=== PATIENT | male | born 1955 | race Hispanic/Latino ===

== ENCOUNTER 2021-01-31 15:26 | Inpatient (IN) | payer MEDICARE ==
[~2021-01-31 15:26] MED LIST: Iopamidol-370 76% 500 ML 1 ML ONE
[2021-01-31] MEDS ORDERED: Aspirin 300 MG Suppository ONE (16:01)
[2021-01-31 16:23] LABS: #Lymphocytes 0.9 thou/uL (1.20-3.40); #Monocytes 0.4 thou/uL (0.11-0.59); #Neutrophils 5.5 thou/uL (1.40-6.50); %Basophils 0.7 % (0.0-1.0); %Eosinophils 0.5 % (0.0-10.0); %Lymphocytes 13.5 % (21.0-51.0); %Monocytes 5.9 % (0.0-10.0); %Neutrophils 79.4 % (42.0-75.0); Hemoglobin 12.5 g/dL (14.0-18.0); Mean Corpuscular HGB CONC 34.8 g/dL (32.0-36.0); Mean Corpuscular Hemoglobin 34.3 pg (27.0-31.0); Mean Corpuscular Volume 98.7 fL (78.0-98.0); Mean Platelet Volume 7.5 fL (7.4-10.4); Platelet Count 210 thou/uL (130-400); RBC Distribution Width 12.1 % (11.5-14.5); Red Blood Cell (RBC) Count 3.63 mill/uL (4.70-6.10); White Blood Cell (WBC) Count 6.9 thou/uL (4.8-10.8)
[2021-01-31 16:28] LABS: INR-International Normal Ratio 1.1; PTT 33.4 sec (22.9-36.1); Prothrombin Time 14.3 sec (12.0-14.7)
[2021-01-31 16:30] LABS: ALT (SGPT) 16 U/L (8-55); AST (SGOT) 20 U/L (5-34); Albumin 4.3 g/dL (3.4-4.8); Alkaline Phosphatase 67 U/L (40-110); Anion Gap 16 mmol/L (10-20); BUN (Urea Nitrogen) 16 mg/dL (8.4-25.7); Bilirubin, Total 0.8 mg/dL (0.2-1.2); Calc. Creatinine Clearance 0 mL/min (70-130); Calcium 9.5 mg/dL (7.8-10.44); Carbon Dioxide 23 mmol/L (23-31); Chloride 101 mmol/L (98-107); Globulin 3.1 g/dL (2.4-3.5); Glucose 199 mg/dL (80-115); Potassium 3.5 mmol/L (3.5-5.1); Protein, Total 7.4 g/dL (5.8-8.1); Sodium 136 mmol/L (136-145)
[2021-01-31] MEDS ORDERED: hydrALAZINE 20 MG/ML VIAL SLOW IVP PRN (18:24)
[2021-01-31] MEDS ORDERED: Labetalol HCl 100 MG/20 ML VIAL SLOW IVP PRN (18:24)
[2021-01-31] MEDS ORDERED: Acetaminophen 325 MG TAB PO PRN (18:27)
[2021-01-31] MEDS ORDERED: Ondansetron ODT 4 MG TAB PO PRN (18:27)
[2021-01-31] MEDS ORDERED: Calcium Carbonate 500 MG ChewTAB PO PRN (18:27)
[2021-01-31] MEDS ORDERED: Ondansetron PF 4 MG/2 ML Vial IVP PRN (18:27)
[2021-01-31] MEDS ORDERED: Acetaminophen 650 MG Suppository PR PRN (18:27)
[2021-01-31] MEDS ORDERED: Clopidogrel Bisulfate 75 MG TAB PO SCH (18:30)
[2021-01-31] MEDS ORDERED: Dextrose 50% Abboject 50 ML SYRINGE SLOW IVP PRN (18:32)
[2021-01-31] MEDS ORDERED: HumaLOG 300 UNITS/3 ML VIAL SC PRN ×2 (18:32)
[2021-01-31] MEDS ORDERED: Dextrose 5% in Water 1,000 ML IV PRN (18:32)
[2021-01-31] MEDS ORDERED: Famotidine 20 MG TAB PO SCH (21:00)
[2021-01-31] MEDS ORDERED: Famotidine/PF 20 mg/2ml Vial SLOW IVP SCH (21:00)
[2021-01-31] MEDS ORDERED: Atorvastatin Calcium 40 MG TAB PO SCH (21:00)
[2021-01-31 22:13] VITALS: BMI 30.6
[2021-02-01 00:32] LABS: SARS-CoV-2 NAA Rapid Test Not Detected (NotDetected)
[2021-02-01 05:29] LABS: #Eosinphils 0.2 thou/uL (0.0-0.7); #Lymphocytes 1.8 thou/uL (1.20-3.40); #Monocytes 0.7 thou/uL (0.11-0.59); #Neutrophils 3.8 thou/uL (1.40-6.50); %Basophils 0.5 % (0.0-1.0); %Eosinophils 2.3 % (0.0-10.0); %Lymphocytes 27.8 % (21.0-51.0); %Monocytes 10.8 % (0.0-10.0); %Neutrophils 58.7 % (42.0-75.0); Hemoglobin 12.6 g/dL (14.0-18.0); Mean Corpuscular Hemoglobin 34.8 pg (27.0-31.0); Mean Corpuscular Volume 99.3 fL (78.0-98.0); Mean Platelet Volume 7.6 fL (7.4-10.4); Platelet Count 207 thou/uL (130-400); RBC Distribution Width 12.3 % (11.5-14.5); Red Blood Cell (RBC) Count 3.63 mill/uL (4.70-6.10); White Blood Cell (WBC) Count 6.5 thou/uL (4.8-10.8)
[2021-02-01 05:50] LABS: Anion Gap 13 mmol/L (10-20); BUN (Urea Nitrogen) 15 mg/dL (8.4-25.7); Calc. Creatinine Clearance 73 mL/min (70-130); Calcium 9.6 mg/dL (7.8-10.44); Carbon Dioxide 24 mmol/L (23-31); Cardiac Risk 6.1 (Less than 4.5); Chloride 104 mmol/L (98-107); Cholesterol 220 mg/dl (< 200 Desired); Glucose 150 mg/dL (80-115); HDL Cholesterol 36 mg/dL (>60 Neg Risk); LDL Cholesterol, Calculated 159 mg/dL; Magnesium 2.2 mg/dL (1.6-2.6); Potassium 3.3 mmol/L (3.5-5.1); Sodium 138 mmol/L (136-145); Triglycerides 127 mg/dL (Less than 150)
[2021-02-01] MEDS ORDERED: Clopidogrel Bisulfate 75 MG TAB PO SCH ×2 (09:00)
[2021-02-01] MEDS ORDERED: Lisinopril/Hydrochlorothiazide 20 mg/12.5 mg Tablet PO SCH (09:00)
[2021-02-01] MEDS ORDERED: Aspirin 81 mg Enteric Coated Tablet PO SCH (09:00)
[2021-02-01] MEDS ORDERED: Metoprolol Tartrate 50 MG TAB PO SCH (09:00)
[2021-02-01 11:29] VITALS: TEMP 98.1
[2021-02-01] MEDS ORDERED: Potassium Chloride 20 MEQ TAB PO SCH (12:00)
[2021-02-01 14:00] VITALS: BP 152/77
[2021-02-01] MEDS ORDERED: Atorvastatin Calcium 40 MG TAB PO SCH (21:00)
== END 2021-02-01 14:37 | disposition home or self-care (01) | DRG 69 ==
LOC: ERS 15:26 → 2SE 17:28
PROVIDERS: ADMIT Internal Medicine; ATTEND Internal Medicine
DX: G45.9 Transient cerebral ischemic attack, unspecified (principal); N18.30 Chronic kidney disease, stage 3 unspecified; D63.1 Anemia in chronic kidney disease; K11.20 Sialoadenitis, unspecified; Z20.822 Contact with and (suspected) exposure to COVID-19; I65.21 Occlusion and stenosis of right carotid artery; I12.9 Hypertensive chronic kidney disease with stage 1 through stage 4 chronic kidney disease, or unspecified chronic kidney disease; E78.5 Hyperlipidemia, unspecified; E11.22 Type 2 diabetes mellitus with diabetic chronic kidney disease; I25.10 Atherosclerotic heart disease of native coronary artery without angina pectoris; Z79.01 Long term (current) use of anticoagulants; Z79.4 Long term (current) use of insulin; Z79.899 Other long term (current) drug therapy; Z95.5 Presence of coronary angioplasty implant and graft
CPT/HCPCS: 36415; 36416; 70450; 70496; 70498; 70551; 71045; 80048; 80061; 83735; 84443; 85025; 93005; 93306; J1815; Q9967; S0028; U0002; U0005

== ENCOUNTER 2024-09-06 21:07 | Inpatient (IN) | payer MEDICARE ==
[2024-09-06 21:42] VITALS: BMI 31.5
[2024-09-06] MEDS ORDERED: Insulin Lispro 100 UNIT/ML 10 ML VIAL SC PRN (23:02)
[2024-09-06] MEDS ORDERED: Dextrose 50% Abboject 50 ML SYRINGE SLOW IVP PRN (23:02)
[2024-09-06] MEDS ORDERED: Glucagon 1 MG/ML KIT IM PRN (23:02)
[2024-09-06] MEDS ORDERED: Dextrose 5% in Water 1,000 ML IV PRN (23:02)
[2024-09-06] MEDS ORDERED: Ondansetron ODT 4 MG TAB PO PRN (23:02)
[2024-09-06] MEDS ORDERED: Labetalol HCl 100 MG/20 ML VIAL SLOW IVP PRN (23:02)
[2024-09-06] MEDS ORDERED: Ondansetron PF 4 MG/2 ML Vial IVP PRN (23:02)
[2024-09-07] MEDS: Acetaminophen 325 MG TAB PO PRN (02:12)
[2024-09-07 03:53] LABS: #Basophils Less than 0.03 10x3/uL (0.0-0.2); %Basophils 0.3 % (0.0-1.0); %Eosinophils 1.1 % (0.0-10.0); %Monocytes 7.2 % (0.0-10.0); %Neutrophils 74.1 % (42.0-75.0); Hematocrit 35.3 % (42.0-52.0); Hemoglobin 12.7 g/dL (14.0-18.0); Mean Corpuscular Hemoglobin 33.1 pg (27.0-31.0); Mean Corpuscular Volume 91.9 fL (78.0-98.0); Mean Platelet Volume 10.2 fL (7.4-10.4); Platelet Count 165 10x3/uL (130-400); RBC Distribution Width 12.9 % (11.5-14.5); Red Blood Cell (RBC) Count 3.84 mill/uL (4.70-6.10)
[2024-09-07 04:04] LABS: Hemoglobin A1c 10.5 % (4.0-6.0)
[2024-09-07 04:21] LABS: Anion Gap 11 mmol/L (10-20); BUN (Urea Nitrogen) 13 mg/dL (8.4-25.7); Calc. Creatinine Clearance 105 mL/min (70-130); Calcium 8.7 mg/dL (7.8-10.44); Carbon Dioxide 22 mmol/L (23-31); Cardiac Risk 5.8 (Less than 4.5); Chloride 103 mmol/L (98-107); Cholesterol 216 mg/dl (< 200 Desired); Estimated GFR 97; Glucose 284 mg/dL (83-110); HDL Cholesterol 37 mg/dL (>60 Neg Risk); LDL Cholesterol, Calculated 155 mg/dL; Potassium 3.4 mmol/L (3.5-5.1); Sodium 133 mmol/L (136-145); Triglycerides 121 mg/dL (Less than 150)
[2024-09-07 04:49] LABS: Troponin I 0.223 ng/mL (< 0.028)
[2024-09-07] MEDS: Insulin Lispro 100 UNIT/ML 10 ML VIAL SC PRN (05:44)
[2024-09-07] MEDS: Potassium Chloride 20 MEQ TAB PO SCH (05:44)
[2024-09-07 07:21] LABS: Critical Call Chem Troponin I RESULT DECREASING; Troponin I 0.206 ng/mL (< 0.028)
[2024-09-07] MEDS ORDERED: Lorazepam 0.5 MG TAB PO PRN (08:06)
[2024-09-07] MEDS ORDERED: Electrolyte Replacement Protocol 1 EACH FS ONE (08:21)
[2024-09-07] MEDS ORDERED: Enoxaparin 60 MG (0.6 mL) SYRINGE SC SCH (09:15)
[2024-09-07] MEDS ORDERED: Electrolyte Replacement Protocol FS PRN (09:15)
[2024-09-07] MEDS ORDERED: CEFAZOLIN 2 GM in Sodium Chloride 0.9% 100 ML IVPB SCH (09:45)
[2024-09-07] MEDS ORDERED: EPINEPHrine 1 MG/ML VIAL ONE (10:37)
[2024-09-07] MEDS ORDERED: Bupivacaine PF 0.5% 30 ML VIAL ONE (10:37)
[2024-09-07] MEDS ORDERED: Heparin 5,000 UNITS/ML VIAL ONE (10:37)
[2024-09-07] MEDS ORDERED: fentaNYL PF 100 MCG/2 ML SYRINGE ONE (10:54)
[2024-09-07] MEDS ORDERED: PROPOFOL 20 ML ONE (10:54)
[2024-09-07] MEDS ORDERED: Ondansetron PF 4 MG/2 ML Vial ONE (10:55)
[2024-09-07] MEDS ORDERED: Lidocaine 1% PF 5 ML VIAL ONE (10:55)
[2024-09-07] MEDS ORDERED: SUCCINYLCHOLINE/SOD CL,ISO/PF 200 MG/10 ML SYRINGE FS ONE (10:55)
[2024-09-07] MEDS ORDERED: Rocuronium Bromide 10 MG/ML (10ML VIAL) ONE (10:55)
[2024-09-07] MEDS ORDERED: Dexamethasone 20 MG/5 ML VIAL ONE (10:55)
[2024-09-07] MEDS ORDERED: Insulin Regular, Human 100 UNIT/ML 10 ML VIAL ONE (10:56)
[2024-09-07] MEDS ORDERED: CEFAZOLIN 2 GM VIAL ONE ×2 (11:06→18:20)
[2024-09-07] MEDS ORDERED: ePHEDrine Sulfate 50 MG/10 ML VIAL ONE (12:02)
[2024-09-07] MEDS ORDERED: Heparin 10,000 UNITS/ 10 ML VIAL ONE (12:08)
[2024-09-07] MEDS ORDERED: Protamine Sulfate 50 MG/5 ML VIAL ONE (12:37)
[2024-09-07] MEDS ORDERED: SUGAMMADEX SODIUM 200 MG/2 ML VIAL ONE (12:46)
[2024-09-07] MEDS ORDERED: Labetalol HCl 100 MG/20 ML VIAL ONE (12:57)
[2024-09-07] MEDS ORDERED: Esmolol 100 MG/10 ML VIAL ONE (12:57)
[2024-09-07] MEDS ORDERED: hydrALAZINE 20 MG/ML VIAL ONE (13:18)
[2024-09-07] MEDS ORDERED: Promethazine HCl 25 MG/ML VIAL IM PRN (13:21)
[2024-09-07] MEDS ORDERED: Ondansetron HCl/PF 4 MG/2 ML Vial IVP PRN (13:21)
[2024-09-07] MEDS ORDERED: Ipratropium/Albuterol 3 ML NEB NEB PRN (13:26)
[2024-09-07] MEDS ORDERED: fentaNYL 50 mcg/mL 1 mL Vial SLOW IVP PRN ×2 (13:26)
[2024-09-07] MEDS ORDERED: niCARdipine 25 MG in Sodium Chloride 0.9% 250 ML 250 ML IVPB PRN (13:26)
[2024-09-07] MEDS ORDERED: Acetaminophen 325 MG TAB PO PRN (13:26)
[2024-09-07] MEDS ORDERED: Phenylephrine 40 MG/NS 250 ML 250 ML IVPB PRN (13:26)
[2024-09-07] MEDS ORDERED: Ondansetron PF 4 MG/2 ML Vial IVP PRN (13:26)
[2024-09-07] MEDS ORDERED: Insulin Lispro 100 UNIT/ML 10 ML VIAL ONE (14:56)
[2024-09-07] MEDS: Sodium Chloride 0.9% 1,000 ML IV SCH (15:00)
[2024-09-07] MEDS: Insulin Regular, Human 100 UNIT/ML 10 ML VIAL SC PRN (18:18)
[2024-09-07] MEDS ORDERED: Sodium Chloride 0.9% 100 ML ONE (18:20)
[2024-09-07] MEDS: CEFAZOLIN 2 GM in Sodium Chloride 0.9% 100 ML IVPB SCH (18:29)
[2024-09-07] MEDS ORDERED: traMADol HCl 50 MG TAB ONE (18:30)
[2024-09-07] MEDS: traMADol HCl 50 MG TAB PO PRN (18:33)
[2024-09-07] MEDS ORDERED: Atorvastatin Calcium 40 MG TAB ONE (20:46)
[2024-09-07] MEDS: Atorvastatin Calcium 40 MG TAB PO SCH (20:49)
[2024-09-07] MEDS: Aspirin 81 mg Enteric Coated Tablet PO SCH (21:50)
[2024-09-07] MEDS: Magnesium 2 GM/50 ML(in water) 2 GM in Premix 1 BAG IVPB SCH (21:50)
[2024-09-07] MEDS: Insulin Regular, Human 100 UNIT/ML 10 ML VIAL SC SCH (21:51)
[2024-09-07] MEDS: Heparin 1,000 UNITS/ML VIAL SLOW IVP SCH (21:51)
[2024-09-07] MEDS: Ipratropium/Albuterol 3 ML NEB NEB SCH (22:29)
[2024-09-08 04:09] LABS: #Basophils Less than 0.03 10x3/uL (0.0-0.2); #Eosinophils Less than 0.03 10x3/uL (0.0-0.7); %Basophils 0.1 % (0.0-1.0); %Lymphocytes 5.5 % (21.0-51.0); %Monocytes 3.9 % (0.0-10.0); %Neutrophils 90.3 % (42.0-75.0); Hematocrit 31.8 % (42.0-52.0); Hemoglobin 11.2 g/dL (14.0-18.0); Mean Corpuscular HGB CONC 35.2 g/dL (32.0-36.0); Mean Corpuscular Volume 93.8 fL (78.0-98.0); Mean Platelet Volume 10.3 fL (7.4-10.4); Platelet Count 162 10x3/uL (130-400); RBC Distribution Width 13.2 % (11.5-14.5); Red Blood Cell (RBC) Count 3.39 mill/uL (4.70-6.10)
[2024-09-08 04:43] LABS: Anion Gap 14 mmol/L (10-20); BUN (Urea Nitrogen) 24 mg/dL (8.4-25.7); Calc. Creatinine Clearance 87 mL/min (70-130); Calcium 8.5 mg/dL (7.8-10.44); Carbon Dioxide 17 mmol/L (23-31); Chloride 107 mmol/L (98-107); Estimated GFR 92; Glucose 293 mg/dL (83-110); Magnesium 2.1 mg/dL (1.6-2.6); Potassium 3.8 mmol/L (3.5-5.1); Sodium 134 mmol/L (136-145)
[2024-09-08] MEDS ORDERED: Insulin Regular 300 UNITS/3 ML VIAL SC PRN (11:48)
[2024-09-08] MEDS: Insulin Glargine 30 UNITS/0.3 ML VIAL SC SCH (12:01)
[2024-09-08] MEDS: hydrALAZINE 20 MG/ML VIAL SLOW IVP PRN (19:40)
[2024-09-08] MEDS: Carvedilol 3.125 MG TAB PO SCH (21:07)
[2024-09-09 04:26] LABS: #Basophils Less than 0.03 10x3/uL (0.0-0.2); %Basophils 0.2 % (0.0-1.0); %Eosinophils 0.3 % (0.0-10.0); %Lymphocytes 18.2 % (21.0-51.0); %Monocytes 7.4 % (0.0-10.0); %Neutrophils 73.7 % (42.0-75.0); Hematocrit 34.2 % (42.0-52.0); Mean Corpuscular HGB CONC 35.1 g/dL (32.0-36.0); Mean Corpuscular Hemoglobin 32.7 pg (27.0-31.0); Mean Corpuscular Volume 93.2 fL (78.0-98.0); Mean Platelet Volume 10.5 fL (7.4-10.4); Platelet Count 165 10x3/uL (130-400); RBC Distribution Width 13.5 % (11.5-14.5); Red Blood Cell (RBC) Count 3.67 mill/uL (4.70-6.10)
[2024-09-09 04:42] LABS: Anion Gap 11 mmol/L (10-20); BUN (Urea Nitrogen) 14 mg/dL (8.4-25.7); Calc. Creatinine Clearance 119 mL/min (70-130); Calcium 8.4 mg/dL (7.8-10.44); Carbon Dioxide 22 mmol/L (23-31); Chloride 107 mmol/L (98-107); Estimated GFR 99; Glucose 210 mg/dL (83-110); Potassium 3.3 mmol/L (3.5-5.1); Sodium 137 mmol/L (136-145)
[2024-09-09] MEDS: Potassium Chloride 20 MEQ TAB PO SCH (08:13)
[2024-09-09] MEDS: Lorazepam 0.5 MG TAB PO PRN (08:13)
[2024-09-09] MEDS: Insulin Glargine 30 UNITS/0.3 ML VIAL SC SCH (08:14)
[2024-09-09] MEDS ORDERED: Insulin Glargine 30 UNITS/0.3 ML VIAL SC SCH (09:00)
[2024-09-09 09:12] VITALS: BMI 33.0
[2024-09-09] MEDS: Losartan 25 MG TAB PO SCH (13:01)
[2024-09-09] MEDS: Carvedilol 6.25 MG TAB PO SCH ×2 (13:04→17:45)
[2024-09-10] MEDS: Metoprolol Tartrate 5 MG (5 mL) VIAL IVP SCH ×2 (02:37→03:16)
[2024-09-10] MEDS: dilTIAZem 25 MG/5 ML VIAL SLOW IVP SCH (02:55)
[2024-09-10] MEDS: Sodium Chloride 0.9% 500 ML IV SCH (03:25)
[2024-09-10 03:46] LABS: Anion Gap 14 mmol/L (10-20); BUN (Urea Nitrogen) 19 mg/dL (8.4-25.7); Calc. Creatinine Clearance 103 mL/min (70-130); Calcium 9.1 mg/dL (7.8-10.44); Carbon Dioxide 19 mmol/L (23-31); Chloride 105 mmol/L (98-107); Estimated GFR 95; Glucose 205 mg/dL (83-110); Potassium 3.7 mmol/L (3.5-5.1); Sodium 134 mmol/L (136-145)
[2024-09-10] MEDS: dilTIAZem 125 MG in Sodium Chloride 0.9% 100 ML IVPB SCH (04:13)
[2024-09-10] MEDS: Magnesium 2 GM/50 ML(in water) 2 GM in Premix 1 BAG IVPB SCH (04:37)
[2024-09-10] MEDS: Digoxin 0.5 MG/2 ML AMP SLOW IVP SCH (06:05)
[2024-09-10] MEDS: Amiodarone 150 MG, Admixture Fee 1 EACH in Dextrose 5% in Water 100 ML IVPB SCH (08:50)
[2024-09-10] MEDS: Losartan 25 MG TAB PO SCH (09:10)
[2024-09-10] MEDS: Ipratropium Bromide 2.5 ml Neb NEB SCH (13:09)
[2024-09-10] MEDS: Amiodarone 450 MG in Dextrose 5% in Water 250 ML IVPB SCH (15:18)
[2024-09-10] MEDS: Insulin Regular, Human 100 UNIT/ML 10 ML VIAL SC PRN (21:01)
[2024-09-11 03:54] LABS: #Basophils Less than 0.03 10x3/uL (0.0-0.2); %Basophils 0.2 % (0.0-1.0); %Eosinophils 1.4 % (0.0-10.0); %Lymphocytes 20.5 % (21.0-51.0); %Monocytes 10.6 % (0.0-10.0); Hematocrit 30.9 % (42.0-52.0); Hemoglobin 10.9 g/dL (14.0-18.0); Mean Corpuscular HGB CONC 35.3 g/dL (32.0-36.0); Mean Corpuscular Hemoglobin 33.2 pg (27.0-31.0); Mean Corpuscular Volume 94.2 fL (78.0-98.0); Mean Platelet Volume 10.2 fL (7.4-10.4); Platelet Count 163 10x3/uL (130-400); RBC Distribution Width 13.2 % (11.5-14.5); Red Blood Cell (RBC) Count 3.28 mill/uL (4.70-6.10)
[2024-09-11 04:28] LABS: Anion Gap 12 mmol/L (10-20); BUN (Urea Nitrogen) 20 mg/dL (8.4-25.7); Calc. Creatinine Clearance 103 mL/min (70-130); Calcium 8.4 mg/dL (7.8-10.44); Carbon Dioxide 21 mmol/L (23-31); Chloride 105 mmol/L (98-107); Estimated GFR 95; Glucose 181 mg/dL (83-110); Potassium 3.4 mmol/L (3.5-5.1); Sodium 135 mmol/L (136-145)
[2024-09-11 04:39] LABS: Troponin I 8.141 ng/mL (< 0.028)
[2024-09-11] MEDS ORDERED: Heparin 10,000 UNITS/ 10 ML VIAL SLOW IVP SCH (05:00)
[2024-09-11] MEDS ORDERED: Heparin 25,000 units/D5W 500 ML IVPB SCH (05:00)
[2024-09-11] MEDS ORDERED: Heparin 10,000 UNITS/ 10 ML VIAL ONE (05:10)
[2024-09-11 05:28] LABS: Hematocrit 31.9 % (42.0-52.0); Hemoglobin 11.4 g/dL (14.0-18.0); Platelet Count 159 10x3/uL (130-400)
[2024-09-11] MEDS: Magnesium 2 GM/50 ML(in water) 2 GM in Premix 1 BAG IVPB SCH (09:00)
[2024-09-11] MEDS: Insulin Glargine 30 UNITS/0.3 ML VIAL SC SCH (09:01)
[2024-09-11] MEDS: Potassium Chloride 20 MEQ TAB PO SCH (09:02)
[2024-09-11 13:43] LABS: Critical Call Chem Troponin I RESULT DECREASING; Troponin I 5.096 ng/mL (< 0.028)
[2024-09-11] MEDS: Losartan 25 MG TAB PO SCH (20:40)
[2024-09-12 04:52] LABS: Anion Gap 10 mmol/L (10-20); BUN (Urea Nitrogen) 16 mg/dL (8.4-25.7); Calc. Creatinine Clearance 104 mL/min (70-130); Calcium 8.3 mg/dL (7.8-10.44); Carbon Dioxide 24 mmol/L (23-31); Chloride 107 mmol/L (98-107); Estimated GFR 95; Glucose 114 mg/dL (83-110); Magnesium 2.1 mg/dL (1.6-2.6); Potassium 3.6 mmol/L (3.5-5.1); Sodium 137 mmol/L (136-145)
[2024-09-12] MEDS ORDERED: Losartan 25 MG TAB PO SCH (09:00)
[2024-09-12] MEDS: Losartan 25 MG TAB PO SCH ×2 (09:31→20:24)
[2024-09-12] MEDS: Amiodarone 200 MG TAB PO SCH ×2 (14:23→20:23)
[2024-09-12] MEDS ORDERED: Ipratropium/Albuterol 3 ML NEB NEB PRN (16:49)
[2024-09-12] MEDS: traMADol HCl 50 MG TAB PO PRN (23:51)
[2024-09-13 04:54] LABS: Hematocrit 32.5 % (42.0-52.0); Hemoglobin 11.2 g/dL (14.0-18.0); Platelet Count 189 10x3/uL (130-400)
[2024-09-13 05:19] LABS: Anion Gap 12 mmol/L (10-20); BUN (Urea Nitrogen) 16 mg/dL (8.4-25.7); Calc. Creatinine Clearance 104 mL/min (70-130); Calcium 8.4 mg/dL (7.8-10.44); Carbon Dioxide 25 mmol/L (23-31); Chloride 106 mmol/L (98-107); Estimated GFR 95; Glucose 118 mg/dL (83-110); Potassium 3.8 mmol/L (3.5-5.1); Sodium 139 mmol/L (136-145)
[2024-09-13] MEDS ORDERED: Ipratropium Bromide 2.5 ml Neb NEB PRN (09:07)
[2024-09-13] MEDS: Magnesium 2 GM/50 ML(in water) 2 GM in Premix 1 BAG IVPB SCH (09:27)
[2024-09-13] MEDS: Carvedilol 3.125 MG TAB PO SCH (09:28)
[2024-09-13] MEDS: Losartan 25 MG TAB PO SCH (09:28)
[2024-09-13] MEDS: Insulin Glargine 30 UNITS/0.3 ML VIAL SC SCH (09:29)
[2024-09-14 04:19] LABS: Anion Gap 13 mmol/L (10-20); BUN (Urea Nitrogen) 15 mg/dL (8.4-25.7); Calc. Creatinine Clearance 100 mL/min (70-130); Calcium 8.7 mg/dL (7.8-10.44); Carbon Dioxide 22 mmol/L (23-31); Chloride 105 mmol/L (98-107); Estimated GFR 94; Glucose 135 mg/dL (83-110); Magnesium 2.1 mg/dL (1.6-2.6); Potassium 3.6 mmol/L (3.5-5.1); Sodium 136 mmol/L (136-145)
[2024-09-14 16:27] VITALS: TEMP 97.9
[2024-09-14 17:10] VITALS: BP 169/84
[2024-09-15] MEDS ORDERED: Hydrochlorothiazide 25 MG TAB PO SCH (09:00)
== END 2024-09-14 19:48 | DRG 38 ==
LOC: 2SE 21:07 → CCU 09-07 11:37 → 2SE 09-08 18:47 → PCU 09-10 03:23
PROVIDERS: ADMIT Family Medicine; ATTEND Internal Medicine
PROC: 03CK0ZZ Extirpation of Matter from Right Internal Carotid Artery, Open Approach (ICD-10-PCS; principal; 2024-09-07)
PROC: 03UK0KZ Supplement Right Internal Carotid Artery with Nonautologous Tissue Substitute, Open Approach (ICD-10-PCS; 2024-09-07)
DX: I63.131 Cerebral infarction due to embolism of right carotid artery (principal); E87.1 Hypo-osmolality and hyponatremia; G81.94 Hemiplegia, unspecified affecting left nondominant side; G93.49 Other encephalopathy; I5A Non-ischemic myocardial injury (non-traumatic); I10 Essential (primary) hypertension; E78.5 Hyperlipidemia, unspecified; E11.65 Type 2 diabetes mellitus with hyperglycemia; I25.10 Atherosclerotic heart disease of native coronary artery without angina pectoris; Z95.5 Presence of coronary angioplasty implant and graft; E87.6 Hypokalemia; E83.42 Hypomagnesemia; R47.01 Aphasia; I48.0 Paroxysmal atrial fibrillation; Z79.899 Other long term (current) drug therapy; Z79.84 Long term (current) use of oral hypoglycemic drugs; M17.11 Unilateral primary osteoarthritis, right knee
CPT/HCPCS: 36415; 36416; 70450; 70551; 80048; 80061; 82088; 83036; 83735; 84244; 84443; 84484; 85014; 85018; 85025; 85049; 85730; 93005; 93010; 93306; 94640; C1768; J0171; J0282; J0360; J0665; J1100; J1160; J1642; J1644; J1815; J2405; J2704; J2720; J3475; J7030; J7070; J7620; J7644